=== PATIENT | male | born 1980 | race Caucasian/White ===

== ENCOUNTER → 2016-09-23 | Outpatient (CLI) | payer OTHER ==
--- NOTE | 2016-09-23 14:35 | MRI ---
Study: MRI of the Right Shoulder. Indication: M75.81 Technique: Multiplanar, multi sequence MRI of the right shoulder was obtained without intravenous contrast. Comparison: None Findings: Moderate to severe AC joint osteoarthritis with a moderate size joint effusion. Mild type II acromion. Supraspinatus and infraspinatus tendinosis noted with scattered areas of bursal surface fraying throughout both tendons. No full-thickness tear or tendon retraction. Patchy areas of subcortical cystic change of the greater tuberosity noted. Subscapularis and teres minor tendons intact. Rotator cuff musculature normal without atrophy, fatty infiltration, or intramuscular edema. Intracapsular long head biceps tendinosis. Circumferential labral truncation noted. Undersurface tearing of the superior labrum suspected. No advanced glenohumeral joint osteoarthritis. Tiny joint effusion. Subtle thickening and edema inferior glenohumeral ligament which can be seen with adhesive capsulitis. Impression: Supraspinatus and infraspinatus tendinosis and bursal surface fraying. Intracapsular long head biceps tendinosis. Circumferential labral truncation with undersurface tearing suspected superiorly. MR arthrography could better evaluate as clinically indicated. Subtle adhesive capsulitis. Moderate to severe AC joint osteoarthritis. Electronically signed by: Tobias Smith MD 09/23/2016 2:34 PM CDT
== END | disposition home or self-care (01) ==
LOC: MRI 08:15
PROVIDERS: ATTEND Orthopaedic Surgery
DX: M75.81 Other shoulder lesions, right shoulder (principal)

== ENCOUNTER → 2017-08-05 | Outpatient (CLI) | payer OTHER ==
--- NOTE | 2017-08-05 12:23 | RAD ---
EXAM DESCRIPTION: Arthrogram shoulder right: RF. CLINICAL HISTORY: Shoulder pain. 2 prior surgeries. Arthroscopy with removal of debris. Distal clavicle resection - [place] procedure. COMPARISON: Post-arthrogram MRI scan of the right shoulder same date. TECHNIQUE: The procedure was explained to the patient with risks and benefits. The patient gave verbal and written consent. Patient supine on the fluoroscopic table with right shoulder in external rotation. The anterior mid superior right glenohumeral joint was localized by fluoroscopy. The skin was marked, then prepped and draped in a sterile fashion. Local anesthetic given intradermally and intramuscularly. 5 cc of nonionic contrast was prepared in a syringe. A mixture of 10 cc nonionic contrast, 10 cc of 1% xylocaine, 1 cc sodium bicarbonate , 5 cc of sterile saline and 0.1% gadolinium was prepared in a second syringe. A 22-gauge spinal needle was introduced into the anterior superior right glenohumeral joint capsule under fluoroscopic visualization. A test injection of 2 cc of the contrast only was performed under fluoroscopy. Additional 8 cc of the contrast mixture was then injected under fluoroscopy. The patient tolerated the procedure well. Patient was transferred to the high-field MRI suite for multiplanar imaging. No immediate complications. Fluoroscopy time was less than 1 minute. Dose: 47.8 mGy. Single frontal AP image with humerus lateral rotation obtained. IMPRESSION: Successful, fluoroscopic-guided arthrogram of the right shoulder prior to MRI scan. Permanent images from this procedure are maintained in the patient's medical record. Electronically signed by: Aleks Simon MD 08/05/2017 12:22 PM BRINE SUPERVISOR
--- NOTE | 2017-08-05 14:59 | MRI ---
MRI arthrogram right shoulder INDICATION: Shoulder pain limited range of motion shoulder separation 2 previous surgeries TECHNIQUE: MR arthrogram sequences right shoulder following gadolinium arthrography COMPARISON: September 23, 2016 noncontrast MRI right shoulder FINDINGS: There is tendinopathy of the subscapularis without rupture or retraction. No bicep rupture or dislocation. Micrometallic artifact is noted along the anterior aspect of the shoulder from previous surgery. There is a small peripheral tear posterior labrum to the 9:00 position axial series 401 image 10. No muscle atrophy is noted. Previous subacromial decompression with Gomez. There is thickening of the coracoclavicular ligament but no rupture. No osseous deformity of the glenoid noted. Mild subacromial and subdeltoid bursal fluid. There is vague interstitial partial tearing of the supraspinatus and infraspinatus tendons without full-thickness detachment retraction or bursal contrast. There is mild cystic change in the infraspinatus attachment bare area humerus. There is mild fraying of the superior labrum near the bicep labral anchor but no detachment. Minimal synovitis in the axillary recess. IMPRESSION: Mild interstitial fissuring and tendinopathy distal supraspinatus and infraspinatus tendons without complete rupture or retraction Mild fraying superior labrum without detachment or displacement No evidence of recent dislocation Previous resection distal clavicle for subacromial decompression Mild bursal edema without contrast extension Mild subscapularis tendinopathy Electronically signed by: Dillon Herrera MD 08/05/2017 2:58 PM MATH PROFESSOR
== END ==
LOC: RAD 09:00
PROVIDERS: ATTEND Orthopaedic Surgery
DX: S46.011A Strain of muscle(s) and tendon(s) of the rotator cuff of right shoulder, initial encounter (principal); M25.511 Pain in right shoulder

== ENCOUNTER → 2019-10-25 | Outpatient (CLI) | payer BC ==
--- NOTE | 2019-10-26 09:17 | MRI ---
EXAM DESCRIPTION: Lumbar Spine w/o Contrast : Magnetic Resonance Imaging. CLINICAL HISTORY: LOW BACK PAIN COMPARISON: None. TECHNIQUE: Multiplanar, multiple standard sequences, non contrast MRI, lumbar spine. FINDINGS: L5-S1: The disc is well visualized on axial T2 series 501, image 3. Desiccation of the disc with posterior disc space loss and bulging the midline into the right of midline. Granulation tissue type signal in the posterior left disc margin with partial left laminectomy. Granulation tissue is abutting the left subarticular recess and the descending left S1 nerve. Bilateral shortened pedicles. AP canal diameter 10 mm. Facet joints and posterior flavum ligaments (canal elements) are unremarkable. Mild to moderate foraminal narrowing with severe left foraminal narrowing or borderline foraminal stenosis. L4-L5: Minimal disc desiccation and disc space loss. Posterior 3 mm bulge abutting the thecal sac. Slightly more to the left of midline abutting the left L5 nerve in the subarticular recess. Mild degenerative hypertrophy of the canal elements. Bilateral pedicle shortening. AP canal diameter 10 mm. Borderline left foraminal stenosis. Moderate to severe right foraminal narrowing. L3-L4: Normal signal in the disc with no bulging and disc space preserved. Minimal degenerative hypertrophy of the canal elements. Bilateral pedicle shortening. AP canal diameter 11 mm. Mild to moderate right foraminal narrowing and mild narrowing left foramen. L2-L3: Normal signal in the disc with no bulging. Disc space maintained. Minimal degenerative hypertrophy of the canal elements. Bilateral pedicle shortening. AP canal diameter 12 mm. Bilateral foramina are patent. L1-L2: Disc desiccation and minimal disc space loss. Anterior bulging no posterior bulging. Minimal degenerative hypertrophy of the canal elements. Bilateral pedicle shortening. AP canal diameter 12 mm. Bilateral foramina are patent. T12-L1: Normal signal in the disc with disc space maintained. Canal elements are unremarkable. Bilateral pedicle shortening. Foramina and canal are patent. Conus terminates at this level. Anatomic alignment. Paravertebral soft tissues negative. Distal cord normal signal and caliber. Otherwise normal marrow signal in the remaining vertebral bodies and the posterior elements. Vertebral bodies are not compressed at any level. IMPRESSION: 1. Multiple levels of degenerative hypertrophy of the facet joints and posterior ligaments as well as bilateral pedicle shortening at multiple levels resulting in multilevel canal narrowing. 2. Prior partial discectomy on the left at L5-S1 with granulation tissue and partial left laminectomy. Residual disc abutting the descending left S1 nerve. Borderline mild central canal stenosis. Borderline left foraminal stenosis. 3. L4-5 disc bulge abutting the descending left L5 nerve in the left subarticular recess. Borderline mild central canal stenosis. Borderline left foraminal stenosis. Electronically signed by: Aleks Simon MD 10/26/2019 9:16 AM CDT
== END ==
LOC: MRI 08:12
PROVIDERS: ATTEND Nurse Practitioner Family
DX: M46.96 Unspecified inflammatory spondylopathy, lumbar region (principal); M24.28 Disorder of ligament, vertebrae; M48.07 Spinal stenosis, lumbosacral region; M51.86 Other intervertebral disc disorders, lumbar region; M48.061 Spinal stenosis, lumbar region without neurogenic claudication; M89.8X8 Other specified disorders of bone, other site; Z98.890 Other specified postprocedural states

== ENCOUNTER → 2020-04-05 | Outpatient (CLI) | payer BC ==
--- NOTE | 2020-04-05 21:54 | MRI ---
EXAM DESCRIPTION: Lumbar Spine w/wo Contrast CLINICAL HISTORY: 39 years Male, RADICULOPATHY LUMBAR REGION COMPARISON: MRI lumbar spine 10/25/2019 TECHNIQUE: Multisequence, multiplanar images of the lumbar spine without and with intravenous contrast. FINDINGS: For the purpose of this report, the designated L5-S1 disc space will be referred to as axial T2 image 3, series 501. Vertebrae: No acute fracture or acute compression deformity. Prior left L5 hemilaminotomy. Mild lumbar lordosis. Normal AP alignment. No suspicious enhancement or suspicious marrow signal. Spinal cord: Termination of the conus medullaris at T12-L1. Normal nerve roots of the cauda equina. No abnormal enhancement. Discs, facets, spinal canal, and neural foramina: Mild disc desiccation at L4-5 and likely L5-S1. Mild disc space narrowing at L1-L2, and likely L5-S1. No abnormal enhancement. L1-L2: Minimal disc bulge. Moderate facet arthropathy. Mild spinal canal stenosis. Mild bilateral neural foraminal stenosis. L2-3: Minimal disc bulge. Severe facet arthropathy. Mild spinal canal stenosis. Mild bilateral neural foraminal stenosis. L3-4: Minimal disc bulge. Severe facet arthropathy. Mild spinal canal stenosis. Moderate right and mild/moderate left neural foraminal stenosis. L4-5: Small disc bulge and superimposed posterior left paracentral disc protrusion measuring 11 mm transversely and 4 mm AP containing a tiny annular fissure. Severe facet arthropathy. Moderate left lateral recess stenosis which could be affecting the transiting left L5 nerve root. Moderate spinal canal stenosis. Moderate left greater than right neural foraminal stenosis. L5-S1: Small disc bulge and residual posterior left paracentral disc protrusion measuring 14 mm transverse and 4 mm AP. Severe facet arthropathy. Mild left lateral recess stenosis which may be contributed by scarring or granulation tissue. This could be affecting the transiting left S1 nerve root. Mild spinal canal stenosis. Mild right and moderate left neural foraminal stenosis. Paraspinous soft tissues: Unremarkable. No abnormal enhancement. IMPRESSION: 1. No acute fracture. 2. Prior left L5 hemilaminotomy. No suspicious enhancement or organized fluid collection in the surgical bed. 3. Up to moderate spinal canal stenosis at L4-5. 4. L4-5 moderate left lateral recess stenosis likely affecting the transiting left L5 nerve root. Correlate for left L5 radiculopathy. 5. L5-S1 mild left lateral recess stenosis which may be contributed by scarring or granulation tissue status post partial discectomy. This could effect the transiting left S1 nerve root. Correlate for left S1 radiculopathy. 6. Multilevel neural foraminal compromise as above. Electronically signed by: Elroy Haley MD 04/05/2020 9:52 PM CDT
== END ==
LOC: MRI 08:09
PROVIDERS: ATTEND Nurse Practitioner Family
DX: Z01.812 Encounter for preprocedural laboratory examination (principal); M54.16 Radiculopathy, lumbar region; M51.36 Other intervertebral disc degeneration, lumbar region; M47.896 Other spondylosis, lumbar region; M48.061 Spinal stenosis, lumbar region without neurogenic claudication; M48.07 Spinal stenosis, lumbosacral region; Z98.890 Other specified postprocedural states